=== PATIENT | female | born 1985 | race Caucasian/White ===

== ENCOUNTER 2019-04-04 23:32 | Emergency (ER) | payer SELFPAY ==
[~2019-04-04] VITALS: Ht 165.1 cm; Wt 74.8 kg
[2019-04-04] MEDS ORDERED: COVARYX TABLET1 EACH PO (23:59)
[2019-04-05] MEDS ORDERED: ATIVAN0.5 MG PO
--- OUTSIDE RECORDS SUMMARY | 2019-04-05 01:56 | XMS ---
PreManage Notification: LOU RASMUSSEN Security Clinical Exercise Specialist Events No recent Security Events currently on file CRITERIA MET - PDMP CARE PROVIDERS RL FELIZ Internal Medicine Current PHONE: Unknown TRAY GUERRERO Primary Care Current PHONE: Unknown Luiz has no Care Guidelines for this patient. Don VISIT COUNT (12 MO.) 2 Magdy Johnson TOTAL 3 NOTE: Visits indicate total known visits. ED/UCC VISIT TRACKING (12 MO.) 04/04/2019 23:34 SHIREEN Basilio OR TYPE: Emergency COMPLAINT: - POST OP VAGINAL PAIN 05/27/2018 11:26 Magdy [facility] OR TYPE: Emergency DIAGNOSES: - Dysuria - Urinary Tract Infection - Urinary Complaint - Acute parametritis and pelvic cellulitis 05/11/2018 22:20 Magdy [facility] OR TYPE: Emergency DIAGNOSES: - Headache/ Sick - Nausea - Headache (Adult - Recurrent Or Known Dx Migraines) - Viral infection, unspecified INPATIENT VISIT TRACKING (12 MO.) No inpatient visits to display in this time frame [email or web address]
== END 2019-04-05 00:14 | disposition home or self-care (01) ==
LOC: ED 23:32
DX: N89.8 Other specified noninflammatory disorders of vagina (principal); Z90.710 Acquired absence of both cervix and uterus; F17.200 Nicotine dependence, unspecified, uncomplicated; Z88.8 Allergy status to other drugs, medicaments and biological substances; Z79.899 Other long term (current) drug therapy
CPT/HCPCS: 99283